=== PATIENT | female | born 1980 | race Two or more races ===

== ENCOUNTER 2017-07-20 06:52 | Day surgery (SDC) | payer OTHER, SELFPAY ==
[~2017-07-20 06:52] MED LIST: Lactated Ringers 1,000 ML IV SCH; Lidocaine 1%/Sod Bicarbonate in NS 8.4% 1 ML Syringe PRN; Sodium Chloride 0.9% 10 ML Syringe FLUSH PRN
--- NOTE | 2017-07-20 07:23 | PCM.PREANE ---
Preanesthetic Assessment - Anesthesia/Transfusion/Family Hx Anesthesia History: Prior Anesthesia Without Reaction Family History of Anesthesia Reaction: No Transfusion History: No Prior Transfusion(s) - Review of Systems General: No Symptoms Pulmonary: No Symptoms Cardiovascular: No Symptoms Gastrointestinal: Other (discomfort) Neurological: No Symptoms Other: Reports: None - Physical Assessment NPO Status Date: 07/19/17 NPO Status Time: 00:00 Pulse: 74 O2 Sat by Pulse Oximetry: 96 Respiratory Rate: 16 Blood Pressure: 124/70 Temperature: 36.8 C Height: 1.68 m Weight: 75.115 kg ASA Class: 2 Mental Status: Alert & Oriented x3 Airway Class: Mallampati = 1 Dentition: Reports: Normal Dentition Thyro-Mental Finger Breadths: 3 Mouth Opening Finger Breadths: 3 ROM/Head Extension: Full Lungs: Clear to Auscultation, Normal Respiratory Effort Cardiovascular: Regular Rate, Regular Rhythm, No Murmurs - Allergies Allergies/Adverse Reactions: Allergies Allergy/AdvReac Type Severity Reaction Status Date / Time omeprazole Allergy Cannot Verified 07/19/17 12:19 Remember plasma protein fraction Allergy Cannot Verified 07/19/17 12:19 Remember prednisone Allergy Cannot Verified 07/19/17 12:19 Remember - Anesthesia Plan Pre-Op Medication Ordered: None - Acknowledgements Anesthesia Type Planned: MAC Pt an Appropriate Candidate for the Planned Anesthesia: Yes Alternatives and Risks of Anesthesia Discussed w Pt/Guardian: Yes Pt/Guardian Understands and Agrees with Anesthesia Plan: Yes PreAnesthesia Questionnaire HEENT History: Reports: Sinusitis, Other (See Below) Other HEENT History: bleeding gums, scleral icterus Cardiovascular History: Reports: Blood Clots/VTE/DVT, High Cholesterol Respiratory History: Reports: None Gastrointestinal History: Reports: Chronic Diarrhea, GERD, Irritable Bowel Syndrome, Other (See Below) Other Gastrointestinal History: abdominal pain, duodenal ulcer, nausea, jaundice , biliary colic Genitourinary History: Reports: Other (See Below) Other Genitourinary History: hematuria, flank pain, frequency RN PRODUCTION History: Reports: , Other (See Below) Other OB/BYN History: breast pain, irregular menses. Musculoskeletal History: Reports: Neck Pain, Chronic, Other (See Below) Other Musculoskeletal History: radiculopathy, trapezius strain Neurological History: Reports: Other (See Below) Other Neuro History: benign paroxysmal postitional vertigo Psychiatric History: Reports: Other (See Below) Other Psychiatric History: fatigue Endocrine/Metabolic History: Reports: None Hematologic History: Reports: Other (See Below) Other Hematologic History: Heterozygous Factor V Leiden (50%).developed significant DVT in right lower extremity 7 years ago after delivering a baby. Patient has elected to stay on Coumadin daily because of this. She was off Coumadin for 48 hours prior to laparoscopic cholecystectomy and Coumadin was reintroduced. Immunologic History: Reports: None Oncologic (Cancer) History: Reports: None Dermatologic History: Reports: Other (See Below) Other Dermatologic History: pruritis - Past Surgical History Head Surgeries/Procedures: Reports: None Cardiovascular Surgical History: Reports: None Respiratory Surgical History: Reports: None GI Surgical History: Reports: Cholecystectomy Female Surgical History: Reports: None Male Surgical History: Reports: None Endocrine Surgical History: Reports: None Neurological Surgical History: Reports: None Musculoskeletal Surgical History: Reports: None Oncologic Surgical History: Reports: None - SUBSTANCE USE Smoking Status *Q: Never Smoker Second Hand Smoke Exposure: No Days Per Week of Alcohol Use: 0 Number of Drinks Per Day: 0 Total Drinks Per Week: 0 Recreational Drug Use History: No - HOME MEDS Home Medications: Home Meds Warfarin Sodium [Coumadin] 10 mg PO SUTUTHSA 06/17/15 [History] Warfarin [Coumadin] 5 mg PO MOWEFR 06/17/15 [History] Famotidine [Pepcid AC] 10 mg PO DAILY 08/16/16 [History] Amitriptyline [Elavil] 25 mg PO BEDTIME 07/19/17 [History] Peppermint Oil [Ibgard] 90 mg PO DAILY 07/19/17 [History] - CURRENT (IN HOUSE) MEDS Current Meds: Current Medications Lactated Ringer's (Ringers, Lactated) 1,000 mls @ 125 mls/hr IV ASDIRECTED TOMA Stop: 07/20/17 23:00 Lidocaine/Sodium Bicarbonate (Buffered Lidocaine 1% In Ns 8.4%) 0.25 ml .XX ONETIME PRN PRN Reason: Prior to IV Start Stop: 07/20/17 18:00 Sodium Chloride (Saline Flush) 10 ml FLUSH ASDIRECTED PRN PRN Reason: Keep Vein Open Stop: 07/20/17 18:00
[2017-07-20] MEDS ORDERED: Propofol 200 MG/20 ML SDV ONE ×2 (07:50→08:34)
[2017-07-20] MEDS ORDERED: fentaNYL 100 MCG/2 ML SDV ONE (07:51)
[2017-07-20] MEDS ORDERED: Lidocaine 1% 4 ML ONE (07:51)
[2017-07-20] MEDS ORDERED: Midazolam 1 MG/ML 2 ML SDV ONE (07:51)
--- NOTE | 2017-07-20 08:44 | PCM.OPNOTE ---
- General Post-Op/Procedure Note Date of Surgery/Procedure: 07/20/17 Operative Procedure(s): 1. Esophagogastroduodenoscopy with antral gastric and GE junction biopsies. 2. Colonoscopy with ileal biopsy, ascending colonic, transverse colonic, descending colonic, and random rectal biopsies 2 Findings: 1. Mild antritis 2. Anal tags Pre Op Diagnosis: 1. GERD with dysphagia. 2. Chronic watery diarrhea Anesthesia Technique: MAC, Moderate Sedation Primary Surgeon: Farhad Liu Pathology: 1. Multiple colonic and rectal biopsies 2. GE junction antral and gastric biopsies EBL in mLs: 0 Complications: None Condition: Good Free Text/Narrative:: After adequate IV sedation and analgesia was obtained the patient was placed on her left side. Through a bite-block lubricated upper endoscope was inserted into the esophagus and advanced under direct vision to the stomach. Additional air was given here. There was mild antritis with no ladonna erosions or ulcers. The scope was then introduced into the duodenum. The second and first parts were endoscopically normal with no inflammatory changes or mass lesions. In the retroflexed view there was no hiatal hernia. The fundus and cardiac regions were grossly normal endoscopically. Motility was also grossly normal. Given her history random biopsies were taken in the antrum and in the body of the stomach for histologic review. The GE junction was unremarkable. I biopsied this area as well given her history of difficulty swallowing. The body of the esophagus was endoscopically normal. Her vocal cords were briefly visualized and were normal. Air was removed as I finished this procedure which she tolerated well. Research Pharmacist photographs were taken for the patient and for the medical record. Perianal inspection revealed small anal tags. Digital rectal examination was normal. A lubricated colonoscope was inserted into the rectum and advanced towards the cecum without difficulty with air insufflation as necessary. The bowel preparation was excellent. The scope was then introduced into the ileum which was endoscopically normal. Given her history of diarrhea I took 2 random biopsies were histologic review. The cecum and ascending colon transverse and descending colons were also unremarkable endoscopically. Biopsies were taken in these areas randomly for review. The simoid and rectum were normal. I took random biopsies in the rectum 2 using cold forceps. Photographs taken for the patient and for the medical record. There were no procedural complications.
[2017-07-20 09:06] VITALS: BP 124/76
== END 2017-07-20 10:00 | disposition home or self-care (01) ==
LOC: JD.SDS 06:52
PROVIDERS: ATTEND Surgery
DX: K29.50 Unspecified chronic gastritis without bleeding (principal); I78.1 Nevus, non-neoplastic; B33.20 Viral carditis, unspecified; K21.9 Gastro-esophageal reflux disease without esophagitis; E78.1 Pure hyperglyceridemia; Z88.8 Allergy status to other drugs, medicaments and biological substances; Z79.01 Long term (current) use of anticoagulants; Z90.49 Acquired absence of other specified parts of digestive tract; Z79.899 Other long term (current) drug therapy
CPT/HCPCS: 43239; 45380; 81025; J2250; J3010; J7120; 00810; J2704

== ENCOUNTER 2017-08-19 10:25 | Emergency (ER) | payer OTHER, SELFPAY ==
[2017-08-19 10:36] VITALS: BP 152/76
[2017-08-19] MEDS ORDERED: LORazepam 2 MG/ML MDV IVPUSH ONE (10:56)
[2017-08-19] MEDS ORDERED: diphenhydrAMINE 50 MG/ML SDV IVPUSH ONE (10:56)
[2017-08-19] MEDS ORDERED: Sodium Chloride 0.9% 10 ML Syringe FLUSH PRN (10:56)
[2017-08-19] MEDS ORDERED: Acetaminophen 325 MG Tab PO ONE (10:57)
--- NOTE | 2017-08-19 12:28 | EDM.PDOC ---
ED HPI GENERAL MEDICAL PROBLEM - General Chief Complaint: Allergic Reaction Stated Complaint: ARM PAIN AFTER MRI Time Seen by Provider: 08/19/17 10:47 Source of Information: Reports: Patient, RN Notes Reviewed - History of Present Illness INITIAL COMMENTS - FREE TEXT/NARRATIVE: 37-year-old female that is been brought over from radiology after her IV is reported to have possibly infiltrated beginning an MRCP study. After injection of part of the contrast for the study patient did complain immediately a very severe discomfort area of IV left forearm. About 15 mils had been injected. Injection was stopped and IV was flushed with 20 mL of saline. This caused further discomfort to the patient. At that point IV was removed upon patient request. Now while here in the ED she is having significant discomfort in that area of the antecubital space of her left arm. She is very anxious, tearful. Has a very small area of erythema left volar and radial wrist. No other rash or hives visible but she "feels itchy all over". Her throat feels a bit scratchy. She feels mildly short of breath. She does have history of allergies to omeprazole, plasma protein, prednisone. Left Arm Pain Score (Numeric/FACES): 5 - Related Data Allergies Allergy/AdvReac Type Severity Reaction Status Date / Time omeprazole Allergy Cannot Verified 08/19/17 10:36 Remember plasma protein fraction Allergy Cannot Verified 08/19/17 10:36 Remember prednisone Allergy Cannot Verified 08/19/17 10:36 Remember Home Meds: Home Meds Warfarin Sodium [Coumadin] 10 mg PO DAILY 06/17/15 [History] Famotidine [Pepcid AC] 10 mg PO DAILY 08/16/16 [History] Past Medical History HEENT History: Reports: Sinusitis, Other (See Below) Other HEENT History: bleeding gums, scleral icterus Cardiovascular History: Reports: Blood Clots/VTE/DVT, High Cholesterol Respiratory History: Reports: None Gastrointestinal History: Reports: Chronic Diarrhea, GERD, Irritable Bowel Syndrome, Other (See Below) Other Gastrointestinal History: abdominal pain, duodenal ulcer, nausea, jaundice , biliary colic Genitourinary History: Reports: Other (See Below) Other Genitourinary History: hematuria, flank pain, frequency [employer] MACHINE History: Reports: , Other (See Below) Other OB/BYN History: breast pain, irregular menses. Musculoskeletal History: Reports: Neck Pain, Chronic, Other (See Below) Other Musculoskeletal History: radiculopathy, trapezius strain Neurological History: Reports: Other (See Below) Other Neuro History: benign paroxysmal postitional vertigo Psychiatric History: Reports: Anxiety, Other (See Below) Other Psychiatric History: fatigue Endocrine/Metabolic History: Reports: None Hematologic History: Reports: Other (See Below) Other Hematologic History: Heterozygous Factor V Leiden (50%).developed significant DVT in right lower extremity 7 years ago after delivering a baby. Patient has elected to stay on Coumadin daily because of this. She was off Coumadin for 48 hours prior to laparoscopic cholecystectomy and Coumadin was reintroduced. Immunologic History: Reports: None Oncologic (Cancer) History: Reports: None Dermatologic History: Reports: Other (See Below) Other Dermatologic History: pruritis - Past Surgical History Head Surgeries/Procedures: Reports: None Cardiovascular Surgical History: Reports: None Respiratory Surgical History: Reports: None GI Surgical History: Reports: Cholecystectomy Female Surgical History: Reports: None Endocrine Surgical History: Reports: None Neurological Surgical History: Reports: None Musculoskeletal Surgical History: Reports: None Oncologic Surgical History: Reports: None Social & Family History - Family History Family Medical History: Noncontributory - Tobacco Use Smoking Status *Q: Never Smoker Second Hand Smoke Exposure: No - Caffeine Use Caffeine Use: Reports: None - Alcohol Use Days Per Week of Alcohol Use: 0 Number of Drinks Per Day: 0 Total Drinks Per Week: 0 - Recreational Drug Use Recreational Drug Use: No Drug Use in Last 12 Months: No - Living Situation & Occupation Living situation: Reports: , with Family ED ROS ALLERGIC REACTION - Review of Systems Review Of Systems: See Below Constitutional: Denies: Fever, Chills HEENT: Reports: Throat Pain (Mild scratchiness of the throat) Respiratory: Reports: Shortness of Breath (Mild). Denies: Wheezing Cardiovascular: Reports: Chest Pain (Mild anterior chest tightness) GI/Abdominal: Denies: Abdominal Pain, Nausea, Vomiting Musculoskeletal: Reports: Other (Pain and swelling left antecubital space, no warmth or erythema visible at this time, small area of erythema volar and radial aspect of left wrist) Skin: Reports: Erythema (Small area of erythema volar and radial aspect of left wrist, skin is otherwise clear at this time) Neurological: Denies: Numbness, Tingling, Trouble Speaking Psychiatric: Reports: Anxiety (Patient is moderately anxious on arrival to ED) ED EXAM GENERAL NO PERIP PULSE - Physical Exam Exam: See Below General Appearance: Alert, Anxious Eye Exam: Bilateral Eye: PERRL Throat/Mouth: Normal Inspection, Normal Oropharynx Head: No: Facial Swelling Neck: Supple Respiratory/Chest: No Respiratory Distress, Lungs Clear, Normal Breath Sounds. No: Wheezing Cardiovascular: Regular Rate, Rhythm Extremities: Redness (Small area of redness left volar and radial aspect of wrist), Other (There is very mild swelling and moderate tenderness of the antecubital space of her left forearm) Skin Exam: Warm, Dry, Normal Color, No Rash Course - Vital Signs Last Recorded V/S: Last Vital Signs Temp 98.4 F 08/19/17 10:30 Pulse 96 08/19/17 10:30 Resp 12 08/19/17 10:30 BP 152/76 H 08/19/17 10:30 Pulse Ox 98 08/19/17 10:30 - Orders/Labs/Meds Orders: Active Orders 24 hr Category Date Time Status Peripheral IV Care [RC] . DIRECTED Care 08/19/17 10:57 Active Sodium Chloride 0.9% [Saline Flush] Med 08/19/17 10:56 Active 10 ml FLUSH ASDIRECTED PRN Peripheral IV Insertion Adult [OM.PC] Stat Oth 08/19/17 10:56 Ordered Medication Orders Sodium Chloride (Saline Flush) 10 ml FLUSH ASDIRECTED PRN PRN Reason: Keep Vein Open Last Admin: 08/19/17 11:08 Dose: 10 ml Meds: Medications Generic Name Dose Route Start Last Admin Trade Name Freq PRN Reason Stop Dose Admin Sodium Chloride 10 ml 08/19/17 10:56 08/19/17 11:08 Saline Flush FLUSH 10 ml ASDIRECTED PRN Administration Keep Vein Open Discontinued Medications Generic Name Dose Route Start Last Admin Trade Name Freq PRN Reason Stop Dose Admin Acetaminophen 975 mg 08/19/17 10:57 08/19/17 11:12 Tylenol PO 08/19/17 10:58 975 mg NOW ONE Administration Diphenhydramine HCl 25 mg 08/19/17 10:56 08/19/17 11:08 Benadryl IVPUSH 08/19/17 10:57 25 mg ONETIME ONE Administration Lorazepam 0.25 mg 08/19/17 10:56 08/19/17 11:27 Ativan IVPUSH 08/19/17 10:57 Not Given ONETIME ONE - Re-Assessments/Exams Free Text/Narrative Re-Assessment/Exam: 08/19/17 12:42 Patient was treated with 25 mg Benadryl IV, Tylenol 975 by mouth. The itchiness has gone away. She is breathing comfortably with no wheezing or respiratory distress. She is much more relaxed. I also ordered some IV ativan 0.25 mg but she refused, did not want more medicine. She continues to have localized discomfort area of probable infiltration left antecubital space of left arm. She does feel up to going home at this time. Discharge instructions as documented. Departure - Departure Time of Disposition: 12:27 Disposition: Home, Self-Care 01 Condition: Fair Clinical Impression: Extravasation injury of IV catheter site with other complication Qualifiers: Encounter type: initial encounter Qualified Code(s): T82.898A - Other specified complication of vascular prosthetic devices, implants and grafts, initial encounter - Discharge Information Referrals: Connie Anne PA-C [Primary Care Provider] - Forms: ED Department Discharge Additional Instructions: Ice packs intermittently today for discomfort and swelling, tomorrow begin to alternate ice packs with heat about every 2 hours. Elevation of the arm will also help the swelling go down more quickly. Tylenol 3 times daily as needed for discomfort. Follow-up clinic if not getting back to normal within 3-5 days as expected, return to ED as needed if symptoms worsening in any way - My Orders Last 24 Hours: My Active Orders 08/19/17 10:56 Sodium Chloride 0.9% [Saline Flush] 10 ml FLUSH ASDIRECTED PRN Peripheral IV Insertion Adult [OM.PC] Stat 08/19/17 10:57 Peripheral IV Care [RC] . DIRECTED - Assessment/Plan Last 24 Hours: My Active Orders 08/19/17 10:56 Sodium Chloride 0.9% [Saline Flush] 10 ml FLUSH ASDIRECTED PRN Peripheral IV Insertion Adult [OM.PC] Stat 08/19/17 10:57 Peripheral IV Care [RC] . DIRECTED
== END 2017-08-19 13:30 | disposition home or self-care (01) ==
LOC: SUPCPDRO 10:25 → JD.ED 10:25
DX: T82.898A Other specified complication of vascular prosthetic devices, implants and grafts, initial encounter (principal); E78.00 Pure hypercholesterolemia, unspecified; K21.9 Gastro-esophageal reflux disease without esophagitis; Z79.01 Long term (current) use of anticoagulants; Z88.8 Allergy status to other drugs, medicaments and biological substances; Z79.899 Other long term (current) drug therapy
CPT/HCPCS: 96374; 99283; A9270; J1200; J7050; 99284

== ENCOUNTER 2017-11-06 17:04 | Emergency (ER) | payer OTHER ==
[2017-11-06 17:17] VITALS: BP 139/85
--- NOTE | 2017-11-06 19:45 | EDM.PDOC ---
ED HPI GENERAL MEDICAL PROBLEM - General Chief Complaint: Gastrointestinal Problem Stated Complaint: RED ITCHY BUMPS ON BODY Time Seen by Provider: 11/06/17 17:45 Source of Information: Reports: Patient History Limitations: Reports: No Limitations - History of Present Illness INITIAL COMMENTS - FREE TEXT/NARRATIVE: Patient is a 37-year-old female with a history of IBS and factor V Leiden on Coumadin who presents to the ED complaining of her body feeling different. States she normally has some nausea that is intermittent with flareups of IBS. In addition has episodes of diarrhea quite frequently with the IBS with no blood present. She's had epigastric discomfort that waxes and wanes in intensity. States for the past few days has felt different which is difficult to describe. She has also noticed some small little red bumps over her body that are very very small pinpoint in nature. She does have a history of anxiety and notes her anxiety has a recently worsened. She is on Coumadin which she takes regularly with last INR being therapeutic. She's had a colonoscopy that did not reveal any issues. In addition gallbladder has been removed. She is taking Prilosec for acid reflux. Denies any fever, chest pain, short of breath, abdominal pain with evaluation in the ED, dysuria, poor appetite, , swelling to lower extremities, or pain to her calf. She is concerned she may be constipated. - Related Data Allergies Allergy/AdvReac Type Severity Reaction Status Date / Time omeprazole Allergy Cannot Verified 11/06/17 17:17 Remember plasma protein fraction Allergy Cannot Verified 11/06/17 17:17 Remember prednisone Allergy Cannot Verified 11/06/17 17:17 Remember Home Meds: Home Meds Warfarin Sodium [Coumadin] 15 mg PO DAILY 06/17/15 [History] Omeprazole Magnesium [Prilosec Otc] 40 mg PO DAILY 11/06/17 [History] Past Medical History HEENT History: Reports: Sinusitis, Other (See Below) Other HEENT History: bleeding gums, scleral icterus Cardiovascular History: Reports: Blood Clots/VTE/DVT, High Cholesterol Respiratory History: Reports: None Gastrointestinal History: Reports: Chronic Diarrhea, GERD, Irritable Bowel Syndrome, Other (See Below) Other Gastrointestinal History: abdominal pain, duodenal ulcer, nausea, jaundice , biliary colic Genitourinary History: Reports: Other (See Below) Other Genitourinary History: hematuria, flank pain, frequency [employer] History: Reports: , Other (See Below) Other OB/BYN History: breast pain, irregular menses. Musculoskeletal History: Reports: Neck Pain, Chronic, Other (See Below) Other Musculoskeletal History: radiculopathy, trapezius strain Neurological History: Reports: Other (See Below) Other Neuro History: benign paroxysmal postitional vertigo Psychiatric History: Reports: Anxiety, Other (See Below) Other Psychiatric History: fatigue Endocrine/Metabolic History: Reports: None Hematologic History: Reports: Other (See Below) Other Hematologic History: Heterozygous Factor V Leiden (50%).developed significant DVT in right lower extremity 7 years ago after delivering a baby. Patient has elected to stay on Coumadin daily because of this. She was off Coumadin for 48 hours prior to laparoscopic cholecystectomy and Coumadin was reintroduced. Immunologic History: Reports: None Oncologic (Cancer) History: Reports: None Dermatologic History: Reports: Other (See Below) Other Dermatologic History: pruritis - Past Surgical History Head Surgeries/Procedures: Reports: None Cardiovascular Surgical History: Reports: None Respiratory Surgical History: Reports: None GI Surgical History: Reports: Cholecystectomy Female Surgical History: Reports: None Endocrine Surgical History: Reports: None Neurological Surgical History: Reports: None Musculoskeletal Surgical History: Reports: None Oncologic Surgical History: Reports: None Social & Family History - Family History Family Medical History: Noncontributory - Tobacco Use Smoking Status *Q: Never Smoker Second Hand Smoke Exposure: No - Caffeine Use Caffeine Use: Reports: None - Alcohol Use Days Per Week of Alcohol Use: 0 Number of Drinks Per Day: 0 Total Drinks Per Week: 0 - Recreational Drug Use Recreational Drug Use: No Drug Use in Last 12 Months: No - Living Situation & Occupation Living situation: Reports: , with Family ED ROS GENERAL - Review of Systems Review Of Systems: ROS reveals no pertinent complaints other than HPI. ED EXAM, GI/ABD - Physical Exam Exam: See Below Exam Limited By: No Limitations General Appearance: Alert, WD/WN, No Apparent Distress Ears: Hearing Grossly Normal Nose: Normal Inspection Throat/Mouth: Normal Inspection, Normal Oropharynx, Normal Voice, No Airway Compromise Neck: Normal Inspection, Supple Respiratory/Chest: No Respiratory Distress, Lungs Clear, Normal Breath Sounds, No Accessory Muscle Use, Chest Non-Tender Cardiovascular: Normal Peripheral Pulses, Regular Rate, Rhythm, No Murmur GI/Abdominal Exam: Normal Bowel Sounds, Soft, No Organomegaly, No Distention, Tender (Mild tenderness to the epigastric region.) Back Exam: Normal Inspection. No: CVA Tenderness (L), CVA Tenderness (R) Extremities: Normal Inspection, Normal Range of Motion, Non-Tender, No Pedal Edema, Normal Capillary Refill Neurological: Alert, Oriented, CN II-XII Intact, Normal Cognition, No Motor/ Sensory Deficits Psychiatric: Normal Affect, Normal Mood Skin Exam: Warm, Dry, Intact, Normal Color, Other (Few pinpoint red vargas to the chest and arms. Unclear etiology at this point. Appears to be benign.) Course - Vital Signs Last Recorded V/S: Last Vital Signs Temp 97 F 11/06/17 17:13 Pulse 74 11/06/17 17:13 Resp 15 11/06/17 17:13 BP 139/85 11/06/17 17:13 Pulse Ox 100 11/06/17 17:13 - Orders/Labs/Meds Labs: Laboratory Tests 11/06/17 11/06/17 11/06/17 Range/Units 18:20 18:20 18:20 WBC 9.00 (3.98-10.04) K/mm3 RBC 5.06 (3.98-5.22) M/mm3 Hgb 14.5 (11.2-15.7) gm/L Hct 43.1 (34.1-44.9) % MCV 85.2 (79.4-94.8) fl MCH 28.7 (25.6-32.2) pg MCHC 33.6 (32.2-35.5) g/dl RDW Std Deviation 42.1 (36.4-46.3) fL Plt Count 239 (182-369) K/mm3 MPV 11.3 (9.4-12.3) fl Neut % (Auto) 70.9 (34.0-71.1) % Lymph % (Auto) 20.9 (19.3-51.7) % Mcintosh % (Auto) 6.7 (4.7-12.5) % Eos % (Auto) 1.1 (0.7-5.8) Baso % (Auto) 0.1 (0.1-1.2) % Neut # (Auto) 6.38 H (1.56-6.13) K/mm3 Lymph # (Auto) 1.88 (1.18-3.74) K/mm3 Mcintosh # (Auto) 0.60 H (0.24-0.36) K/mm3 Eos # (Auto) 0.10 (0.04-0.36) K/mm3 Baso # (Auto) 0.01 (0.01-0.08) K/mm3 PT 23.4 H (8.0-13.0) SECONDS INR 2.05 Sodium 138 (136-145) mEq/L Potassium 3.4 L (3.5-5.1) mEq/L Chloride 104 (98-107) mEq/L Carbon Dioxide 26 (21-32) mEq/L Anion Gap 11.4 (5-15) BUN 10 (7-18) mg/dL Creatinine 0.7 (0.55-1.02) mg/dL Est Cr Clr Drug Dosing 103.01 mL/min Estimated GFR (MDRD) > 60 (>60) mL/min BUN/Creatinine Ratio 14.3 (14-18) Glucose 108 H (74-106) mg/dL Calcium 9.2 (8.5-10.1) mg/dL Total Bilirubin 0.4 (0.2-1.0) mg/dL AST 19 (15-37) U/L ALT 27 (14-59) U/L Alkaline Phosphatase 93 (46-116) U/L C-Reactive Protein < 0.2 (<1.0) mg/dL Total Protein 8.0 (6.4-8.2) g/dl Albumin 4.1 (3.4-5.0) g/dl Globulin 3.9 gm/dL Albumin/Globulin Ratio 1.1 (1-2) Lipase 87 (73-393) U/L HCG, Qual (NEGATIVE) Urine Color (Yellow) Urine Appearance (Clear) Urine pH (5.0-8.0) Ur Specific [place] (1.005-1.030) Urine Protein (Negative) Urine Glucose (UA) (Negative) Urine Ketones (Negative) Urine Occult Blood (Negative) Urine Nitrite (Negative) Urine Bilirubin (Negative) Urine Urobilinogen (0.2-1.0) Ur Leukocyte Esterase (Negative) Urine RBC (0-5) /hpf Urine WBC (0-5) /hpf Ur Epithelial Cells (0-5) /hpf Urine Bacteria (FEW) /hpf Urine Mucus (FEW) /hpf 11/06/17 11/06/17 Range/Units 18:20 18:20 WBC (3.98-10.04) K/mm3 RBC (3.98-5.22) M/mm3 Hgb (11.2-15.7) gm/L Hct (34.1-44.9) % MCV (79.4-94.8) fl MCH (25.6-32.2) pg MCHC (32.2-35.5) g/dl RDW Std Deviation (36.4-46.3) fL Plt Count (182-369) K/mm3 MPV (9.4-12.3) fl Neut % (Auto) (34.0-71.1) % Lymph % (Auto) (19.3-51.7) % Mcintosh % (Auto) (4.7-12.5) % Eos % (Auto) (0.7-5.8) Baso % (Auto) (0.1-1.2) % Neut # (Auto) (1.56-6.13) K/mm3 Lymph # (Auto) (1.18-3.74) K/mm3 Mcintosh # (Auto) (0.24-0.36) K/mm3 Eos # (Auto) (0.04-0.36) K/mm3 Baso # (Auto) (0.01-0.08) K/mm3 PT (8.0-13.0) SECONDS INR Sodium (136-145) mEq/L Potassium (3.5-5.1) mEq/L Chloride (98-107) mEq/L Carbon Dioxide (21-32) mEq/L Anion Gap (5-15) BUN (7-18) mg/dL Creatinine (0.55-1.02) mg/dL Est Cr Clr Drug Dosing mL/min Estimated GFR (MDRD) (>60) mL/min BUN/Creatinine Ratio (14-18) Glucose (74-106) mg/dL Calcium (8.5-10.1) mg/dL Total Bilirubin (0.2-1.0) mg/dL AST (15-37) U/L ALT (14-59) U/L Alkaline Phosphatase (46-116) U/L C-Reactive Protein (<1.0) mg/dL Total Protein (6.4-8.2) g/dl Albumin (3.4-5.0) g/dl Globulin gm/dL Albumin/Globulin Ratio (1-2) Lipase (73-393) U/L HCG, Qual Negative (NEGATIVE) Urine Color Light yellow (Yellow) Urine Appearance Clear (Clear) Urine pH 6.5 (5.0-8.0) Ur Specific [place] 1.010 (1.005-1.030) Urine Protein Negative (Negative) Urine Glucose (UA) Negative (Negative) Urine Ketones Negative (Negative) Urine Occult Blood Negative (Negative) Urine Nitrite Negative (Negative) Urine Bilirubin Negative (Negative) Urine Urobilinogen 0.2 (0.2-1.0) Ur Leukocyte Esterase Negative (Negative) Urine RBC Not seen (0-5) /hpf Urine WBC Not seen (0-5) /hpf Ur Epithelial Cells 0-5 (0-5) /hpf Urine Bacteria Few (FEW) /hpf Urine Mucus Not seen (FEW) /hpf - Re-Assessments/Exams Free Text/Narrative Re-Assessment/Exam: Labs reviewed: CBC essentially normal. INR is 2.05 which is therapeutic. Potassium was mildly low at 3.4 otherwise the chemistry panel was normal. Lipase 87. HCG negative. UA did not reveal any concerns for infection. X-ray of the abdomen showed copious amounts of stool within the colon. No signs of obstruction at this time. Final interpretation pending. Per nursing staff patient's nausea has improved without therapy. Patient does have a history of IBS any states the nausea is a persistent issue that waxes and wanes. Unclear etiology of current pinpoint red bumps to the chest, arms, legs. There are only a few spots present. Patient did have elevated INR as of last week of 3.96. With itching this may be development of small blood blisters. At this point no treatment will be initiated here. We'll discharge patient home with instructions to follow-up with PCP. Departure - Departure Time of Disposition: 20:05 Disposition: Home, Self-Care 01 Condition: Good Clinical Impression: Abdominal pain Irritable bowel syndrome Qualifiers: Irritable bowel syndrome type: with both diarrhea and constipation Qualified Code(s): K58.2 - Mixed irritable bowel syndrome - Discharge Information Instructions: Abdominal Pain, Adult, [id number] Referrals: PCP,None [Primary Care Provider] - Forms: ED Department Discharge Additional Instructions: As discussed INR was therapeutic. Labs were essentially normal. X-ray did show copious amounts of stool within the colon suggesting you are constipated. With With IBS you can have diarrhea and also constipation. Treatment at this point will consist of MiraLAX one capful every day with copious amounts of water. Follow-up with your PCP to discuss treatment for anxiety/depression since this is commonly associated with IBS. In addition the small red pinpoint bumps to your body may be as of result of INR being supratherapeutic this past week. At this point no treatment will be initiated. Follow-up with PCP in the next week for reevaluation. Return to the ED if you develop any new or worsening symptoms.
--- NOTE | 2017-11-07 07:42 | CR ---
Abdomen: Supine and upright views of the abdomen were obtained. Comparison: Prior abdominal x-ray of 01/13/16. Surgical clips are seen within the upper right abdomen. Bowel gas pattern is normal. No abnormal calcifications or soft tissue abnormality is seen. Bowel gas pattern is normal. No free air is seen. Bony structures are within normal limits for the patient's age. Impression: 1. Nothing acute is seen on two-view abdominal x-ray. Diagnostic code #2
== END 2017-11-06 20:28 | disposition home or self-care (01) ==
LOC: JD.ED 17:04
DX: K58.2 Mixed irritable bowel syndrome (principal); K21.9 Gastro-esophageal reflux disease without esophagitis; Z88.8 Allergy status to other drugs, medicaments and biological substances; Z79.01 Long term (current) use of anticoagulants; Z79.899 Other long term (current) drug therapy
CPT/HCPCS: 36415; 74019; 74019-26; 80053; 81001; 83690; 84703; 85025; 85610; 86140; 99284

== ENCOUNTER 2018-01-20 08:43 | Emergency (ER) | payer SELFPAY ==
[2018-01-20 08:52] VITALS: BP 126/76
--- NOTE | 2018-01-20 09:42 | EDM.PDOC ---
ED HPI GENERAL MEDICAL PROBLEM - General Chief Complaint: Upper Extremity Injury/Pain Stated Complaint: LT RING FINGER INJURY Time Seen by Provider: 01/20/18 09:28 Source of Information: Reports: Patient History Limitations: Reports: No Limitations - History of Present Illness INITIAL COMMENTS - FREE TEXT/NARRATIVE: The patient states that she was playing soccer yesterday, 01/19/2018, when her left fourth finger was struck by the ball and hyperextended. She states that she had immediate pain and there was immediate swelling of her PIP joint. She has not attempted any treatment, other than applying a cream. She denies prior injury to the left fourth finger. She is otherwise uninjured. Her PCP is Connie Anne. left 4th finger Pain Score (Numeric/FACES): 5 - Related Data Allergies Allergy/AdvReac Type Severity Reaction Status Date / Time omeprazole Allergy Cannot Verified 01/20/18 08:52 Remember plasma protein fraction Allergy Cannot Verified 01/20/18 08:52 Remember prednisone Allergy Cannot Verified 01/20/18 08:52 Remember Home Meds: Home Meds Warfarin Sodium [Coumadin] 15 mg PO ASDIRECTED 06/17/15 [History] Warfarin Sodium [Coumadin] 20 mg PO ASDIRECTED 01/20/18 [History] Past Medical History Cardiovascular History: Reports: Blood Clots/VTE/DVT [employer] History: Reports: Hematologic History: Reports: Anticoagulation Therapy (Coumadin), Other (See Below) (Heterozygous Factor V Leiden mutation) - Past Surgical History GI Surgical History: Reports: Cholecystectomy Social & Family History - Family History Family Medical History: Noncontributory - Tobacco Use Smoking Status *Q: Never Smoker Second Hand Smoke Exposure: No - Caffeine Use Caffeine Use: Reports: Tea - Alcohol Use Alcohol Use History: No Days Per Week of Alcohol Use: 0 Number of Drinks Per Day: 0 Total Drinks Per Week: 0 - Recreational Drug Use Recreational Drug Use: No - Living Situation & Occupation Living situation: Reports: , with Spouse, with Family (1 child, brother, [id number]) Occupation: Unemployed Review of Systems - Review of Systems Review Of Systems: ROS reveals no pertinent complaints other than HPI. ED EXAM, GENERAL - Physical Exam Exam: See Below Exam Limited By: No Limitations General Appearance: Alert, WD/WN, No Apparent Distress Extremities: Other (Moderate swelling and tenderness to the left fourth finger PIP joint. No tenderness to the proximal or middle phalanx. Neurovascular status of the left fourth finger is intact) Course - Vital Signs Last Recorded V/S: Last Vital Signs Temp 36.7 C 01/20/18 08:45 Pulse 72 01/20/18 08:45 Resp 18 01/20/18 08:45 BP 126/76 01/20/18 08:45 Pulse Ox 100 01/20/18 08:45 - Re-Assessments/Exams Free Text/Narrative Re-Assessment/Exam: 01/20/18 09:37 4 view radiographs of the left fourth finger appears to demonstrate soft tissue swelling about the PIP, with no acute bony injury. Formal read per the Radiologist pending. 01/20/18 09:41 X-ray results discussed with the patient. I will have the nurse place the patient's finger into an AlumaFoam splint in a natural curve. I'm recommending that she take [id number] ibuprofen for inflammation and discomfort. I will refer her to Dr. Perez, in case her symptoms do not improve by next week. Departure - Departure Time of Disposition: 09:41 Disposition: Home, Self-Care 01 Condition: Good Clinical Impression: Injury of left ring finger - Discharge Information Instructions: Finger Sprain, Adult Referrals: Connie Anne PA-C [Primary Care Provider] - Jose Manuel Perez MD [Physician] - Forms: ED Department Discharge Additional Instructions: You were seen in the emergency room after hyperextending your left ring finger yesterday, 01/19/2018. Workup in the ER included x-rays of your left ring finger, which showed no broken bones, only soft tissue swelling. Your finger has been placed into an AlumaFoam splint. You can remove the splint for bathing, otherwise wear it all the time. We recommend that you take [id number] ibuprofen, 2-3 tablets (400-600 mg) every 8 hours, with food, as needed for discomfort. If your finger is still swollen and sore by next week, please follow-up with the Orthopedic Surgeon Dr. Perez. If any other problems, please do not hesitate to return to the ER.
--- NOTE | 2018-01-20 10:38 | CR ---
Left fourth finger: Four views of the left fourth finger were obtained. Comparison: No finger study or previous hand exam is available. Mild soft tissue swelling is seen. No fracture, dislocation or other bony abnormality is identified. Impression: 1. Soft tissue swelling. No bony abnormality is seen. Diagnostic code #2
== END 2018-01-20 09:50 | disposition home or self-care (01) ==
LOC: JD.ED 08:43
DX: S69.92XA Unspecified injury of left wrist, hand and finger(s), initial encounter (principal); Z88.8 Allergy status to other drugs, medicaments and biological substances; W21.02XA Struck by soccer ball, initial encounter; Y93.66 Activity, soccer
CPT/HCPCS: 73140-26-F3; 73140-F3; 99283

== ENCOUNTER 2019-07-15 14:54 | Emergency (ER) | payer OTHER ==
[2019-07-15 15:27] VITALS: BP 136/93; PULSE 82
--- NOTE | 2019-07-15 16:54 | CR ---
Lumbar spine: AP, lateral and cone down lateral view centered to the lumbosacral junction were obtained. Comparison: No prior lumbar spine study is available. Vertebral body heights and disc spaces are fairly well preserved. Minimal anterior osteophyte is noted off superior endplate of L4. Pedicles are intact. Transverse and spinous processes are intact. Sacroiliac joints appear within normal limits. No subluxation or fracture seen. Surgical clips are seen from prior cholecystectomy. Impression: 1. Minimal degenerative change. Previous cholecystectomy. 2. Three-view lumbar spine study is otherwise unremarkable. Diagnostic code #2
--- NOTE | 2019-07-15 17:18 | EDM.PDOC ---
ED HPI GENERAL MEDICAL PROBLEM - General Chief Complaint: General Stated Complaint: NERVE PAIN ON RIGHT HAND Time Seen by Provider: 07/15/19 15:10 Source of Information: Reports: Patient, Family History Limitations: Reports: No Limitations - History of Present Illness INITIAL COMMENTS - FREE TEXT/NARRATIVE: The patient presents with right arm pain and left low back pain. The back pain started yesterday. She was pulling up her boot and she had pain. She also had blood drawn 2 days ago in her right arm and she thinks they may have hit a nerve because she has some tingling in her arm that radiates to her right thumb. She has some pain that shoots down her left leg at times. She did not hurt her back but this started when she was putting a boot on. She does have a history of factor V leiden deficiency and a DVT to the left leg. Onset: Gradual Duration: Day(s): (2) Location: Reports: Back, Upper Extremity, Right Quality: Reports: Sharp Severity: Moderate Improves with: Reports: Immobilization Worsens with: Reports: Movement Context: Reports: Trauma (blood draw to the right arm) Associated Symptoms: Reports: No Other Symptoms Left Leg Pain Score (Numeric/FACES): 8 - Related Data Allergies Allergy/AdvReac Type Severity Reaction Status Date / Time omeprazole Allergy Cannot Verified 07/15/19 15:28 Remember plasma protein fraction Allergy Cannot Verified 07/15/19 15:28 Remember prednisone Allergy Cannot Verified 07/15/19 15:28 Remember Home Meds: Home Meds Warfarin Sodium [Coumadin] 7.5 mg PO WEEKLY 06/17/15 [History] Warfarin Sodium [Coumadin] 10 mg PO MOWEFR 01/20/18 [History] Past Medical History HEENT History: Reports: Sinusitis, Other (See Below) Other HEENT History: bleeding gums, scleral icterus Cardiovascular History: Reports: Blood Clots/VTE/DVT Other Cardiovascular History: anticoagulant use Respiratory History: Reports: Other (See Below) Other Respiratory History: blood clots Gastrointestinal History: Reports: Chronic Diarrhea, GERD, Irritable Bowel Syndrome, Other (See Below) Other Gastrointestinal History: abdominal pain, duodenal ulcer, nausea, jaundice , biliary colic Genitourinary History: Reports: Other (See Below) Other Genitourinary History: hematuria, flank pain, frequency [employer] History: Reports: Other [employer] History: breast pain, irregular menses. Musculoskeletal History: Reports: Neck Pain, Chronic, Other (See Below) Other Musculoskeletal History: radiculopathy, trapezius strain Neurological History: Reports: Other (See Below) Other Neuro History: benign paroxysmal postitional vertigo Psychiatric History: Reports: Anxiety, Other (See Below) Other Psychiatric History: fatigue Endocrine/Metabolic History: Reports: None Hematologic History: Reports: Anticoagulation Therapy, Other (See Below) Other Hematologic History: Heterozygous Factor V Leiden (50%).developed significant DVT in right lower extremity 7 years ago after delivering a baby. Patient has elected to stay on Coumadin daily because of this. She was off Coumadin for 48 hours prior to laparoscopic cholecystectomy and Coumadin was reintroduced. Immunologic History: Reports: None Oncologic (Cancer) History: Reports: None Dermatologic History: Reports: Other (See Below) Other Dermatologic History: pruritis - Past Surgical History Head Surgeries/Procedures: Reports: None Respiratory Surgical History: Reports: None GI Surgical History: Reports: Cholecystectomy Female Surgical History: Reports: None Endocrine Surgical History: Reports: None Neurological Surgical History: Reports: None Musculoskeletal Surgical History: Reports: None Oncologic Surgical History: Reports: None Social & Family History - Family History Family Medical History: Noncontributory - Tobacco Use Smoking Status *Q: Never Smoker Second Hand Smoke Exposure: No - Caffeine Use Caffeine Use: Reports: None - Recreational Drug Use Recreational Drug Use: No - Living Situation & Occupation Living situation: Reports: , with Spouse, with Family (1 child, brother, [id number]) Occupation: Unemployed ED ROS GENERAL - Review of Systems Review Of Systems: See Below Constitutional: Reports: No Symptoms HEENT: Reports: No Symptoms Respiratory: Reports: No Symptoms Cardiovascular: Reports: No Symptoms Endocrine: Reports: No Symptoms GI/Abdominal: Reports: No Symptoms : Reports: No Symptoms Musculoskeletal: Reports: Back Pain (left lower back pain), Other (Pain to the right forearm) ED EXAM, GENERAL - Physical Exam Exam: See Below Exam Limited By: No Limitations General Appearance: Alert, No Apparent Distress Ears: Normal External Exam Nose: Normal Inspection Head: Atraumatic, Normocephalic Neck: Normal Inspection Respiratory/Chest: No Respiratory Distress, Lungs Clear, Normal Breath Sounds Cardiovascular: Regular Rate, Rhythm, No Edema, No Murmur GI/Abdominal: Soft, Non-Tender, No Organomegaly, No Mass Back Exam: Other (Pain upon palpation to the left lower back) Extremities: Other (Pain upon palpation to the right thumb and right forearm) Course - Vital Signs Last Recorded V/S: Last Vital Signs Temp 97.9 F 07/15/19 15:23 Pulse 82 07/15/19 15:23 Resp 18 07/15/19 15:23 BP 136/93 H 07/15/19 15:23 Pulse Ox 100 07/15/19 15:23 - Orders/Labs/Meds Orders: Active Orders 24 hr Category Date Time Status Durable Medical Equipment for Discharge [DME for Oth 07/15/19 17:13 Ordered Discharge] [COMM] Stat - Re-Assessments/Exams Free Text/Narrative Re-Assessment/Exam: 07/15/19 17:23 I ordered an x-ray her back and there was nothing acute. I will get her on some flexeril and discharge her home. I will also get her in a thumb spica splint. Departure - Departure Time of Disposition: 17:25 Disposition: Home, Self-Care 01 Condition: Good Clinical Impression: Right forearm pain Low back pain Qualifiers: Chronicity: acute Back pain laterality: left Sciatica presence: with sciatica Sciatica laterality: sciatica of left side Qualified Code(s): M54.42 - Lumbago with sciatica, left side - Discharge Information *PRESCRIPTION DRUG MONITORING PROGRAM REVIEWED*: No *COPY OF PRESCRIPTION DRUG MONITORING REPORT IN PATIENT PHIL: No Referrals: Connie Anne PA-C [Primary Care Provider] - Forms: ED Department Discharge Additional Instructions: Follow up with your doctor. Take tylenol for pain and try the flexeril. Wear the splint on the right wrist. Ice the areas that hurt. Please return if you are worse. - My Orders Last 24 Hours: My Active Orders 07/15/19 17:13 Durable Medical Equipment for Discharge [DME for Discharge] [COMM] Stat - Assessment/Plan Last 24 Hours: My Active Orders 07/15/19 17:13 Durable Medical Equipment for Discharge [DME for Discharge] [COMM] Stat
== END 2019-07-15 17:37 | disposition home or self-care (01) ==
LOC: JD.ED 14:54
DX: M79.631 Pain in right forearm (principal); M54.42 Lumbago with sciatica, left side; Z88.8 Allergy status to other drugs, medicaments and biological substances; Z86.718 Personal history of other venous thrombosis and embolism; Z79.01 Long term (current) use of anticoagulants
CPT/HCPCS: 72100; 72100-26; 99283-25